=== PATIENT | male | born 1950 | race Caucasian/White ===

== ENCOUNTER 2021-04-05 07:36 | Emergency (ER) | payer OTHER ==
[~2021-04-05] VITALS: Ht 154.9 cm; Wt 74.4 kg
[2021-04-05] MEDS ORDERED: DIAZEPAM 5 MG TABLET (VALIUM) PO ONE (07:45)
[2021-04-05] MEDS ORDERED: NACL 0.9% 1,000 ML IV ONE ×2 (07:45→09:30)
[2021-04-05 07:53] VITALS: BP_SYST 196
[2021-04-05 08:19] LABS: BASOPHILS % (AUTO) 0.3 % (0.0-2.0); EOSINOPHILS # (AUTO) 0.1 K/uL (0.0-0.4); HEMOGLOBIN 13.5 g/dL (14.0-18.0); LYMPHOCYTES # (AUTO) 1.6 K/uL (1.0-5.5); LYMPHOCYTES % (AUTO) 34.7 % (20.5-51.5); MEAN CORPUSCULAR HEMOGLOBIN 30 pg (27-31); MEAN CORPUSCULAR HGB CONC 34 % (32-36); MEAN CORPUSCULAR VOLUME 88 fL (79.0-98.0); MONOCYTES # (AUTO) 0.4 K/uL (0.0-1.0); MONOCYTES % (AUTO) 8.9 % (1.7-9.3); NEUTROPHILS # (AUTO) 2.5 K/uL (1.8-7.7); NEUTROPHILS % (AUTO) 54.1 % (40.0-70.0); PLATELET COUNT (AUTO) 181 K/uL (130-430); RED BLOOD CELL COUNT(AUTO) 4.56 MIL/uL (4.2-6.2); RED CELL DISTRIBUTION WIDTH 13.8 % (9.0-15.0); WHITE BLOOD COUNT (AUTO) 4.7 K/uL (4.8-10.8)
[2021-04-05 08:23] LABS: ANION GAP 11 (5-15); CALCIUM 9.1 mg/dL (8.4-11.0); CHLORIDE 102 mmol/L (98-107); CREATININE 1.38 mg/dL (0.55-1.30); GLUCOSE 255 mg/dL (70-99); POTASSIUM 4.3 mmol/L (3.5-5.1); SODIUM SERUM 135 mmol/L (136-145); UREA NITROGEN, BLOOD 36 mg/dL (8-21)
[2021-04-05 08:28] LABS: PHOSPHORUS 3.7 mg/dL (2.7-4.5)
[2021-04-05 08:56] LABS: BILIRUBIN,URINE NEGATIVE (NEGATIVE); CLARITY/URINE CLEAR (CLEAR); COLOR,URINE YELLOW (YELLOW); GLUCOSE,URINE 3+ (NEGATIVE); KETONES,URINE NEGATIVE (NEGATIVE); LEUKOCYTE ESTERASE ,URINE NEGATIVE (NEGATIVE); NITRITE, URINE NEGATIVE (NEGATIVE); PH,URINE 5.5 (5.0-8.0); PROTEIN URINE 1+ (NEGATIVE); UROBILINOGEN,URINE 0.2 (0.2-1.0)
[2021-04-05 09:06] LABS: BLOOD, URINE TRACE (NEGATIVE)
[2021-04-05 09:16] LABS: RBC,URINE 0-3 /HPF (0-3); WBC,URINE 0-3 /HPF (0-3)
[2021-04-05 09:17] LABS: BACTERIA,URINE FEW /HPF (None Seen); MUCUS,URINE 1+ /LPF (None Seen)
[2021-04-05] MEDS ORDERED: ACETAMINOPHEN 500 MG TABLET PO ONE (09:30)
[2021-04-05] MEDS ORDERED: IBUPROFEN 600 MG TABLET PO ONE (09:30)
[2021-04-05] MEDS ORDERED: CYCL-10 PO (12:01)
[2021-04-05] MEDS ORDERED: ACET-2634 PO (12:01)
[2021-04-05 12:16] VITALS: BP_SYST 142
== END 2021-04-05 12:16 | disposition home or self-care (01) ==
LOC: SED 07:36
DX: M62.838 Other muscle spasm (principal); M79.662 Pain in left lower leg; E11.9 Type 2 diabetes mellitus without complications
CPT/HCPCS: 36415; 80048; 81000; 82550; 82962; 83735; 84100; 85025; 96360; 96361; 99285; J7030

== ENCOUNTER 2024-02-03 08:48 | Emergency (ER) | payer OTHER ==
[~2024-02-03] VITALS: Ht 157.5 cm; Wt 74.4 kg
[~2024-02-03 08:48] MED LIST: ACET-2634 PO; CYCL10TA24 PO
[2024-02-03 08:55] VITALS: BP_SYST 123; PULSE 95; RESP 16; TEMP 97.1; O2SAT 97
[2024-02-03 09:35] LABS: BASOPHILS # (AUTO) 0.1 K/uL (0.0-0.2); BASOPHILS % (AUTO) 0.7 % (0.0-2.0); EOSINOPHILS # (AUTO) 0.1 K/uL (0.0-0.4); HEMATOCRIT 41.7 % (36-54); HEMOGLOBIN 14.6 g/dL (14.0-18.0); LYMPHOCYTES % (AUTO) 21.3 % (20.5-51.5); MEAN CORPUSCULAR HEMOGLOBIN 30 pg (27-31); MEAN CORPUSCULAR HGB CONC 35 % (32-36); MEAN CORPUSCULAR VOLUME 85 fL (79.0-98.0); MONOCYTES # (AUTO) 0.7 K/uL (0.0-1.0); MONOCYTES % (AUTO) 7.5 % (1.7-9.3); NEUTROPHILS # (AUTO) 6.4 K/uL (1.8-7.7); NEUTROPHILS % (AUTO) 69.5 % (40.0-70.0); PLATELET COUNT (AUTO) 228 K/uL (130-430); RED BLOOD CELL COUNT(AUTO) 4.89 MIL/uL (4.2-6.2); RED CELL DISTRIBUTION WIDTH 14.5 % (9.0-15.0); WHITE BLOOD COUNT (AUTO) 9.2 K/uL (4.8-10.8)
[2024-02-03 09:46] LABS: ANION GAP 13 (5-15); CALCIUM 9.1 mg/dL (8.4-11.0); CARBON DIOXIDE 24 mmol/L (23-29); CHLORIDE 100 mmol/L (98-107); CREATININE 1.92 mg/dL (0.55-1.30); GLUCOSE 279 mg/dL (74-106); POTASSIUM 4.4 mmol/L (3.5-5.1); SODIUM SERUM 137 mmol/L (136-145); UREA NITROGEN, BLOOD 37 mg/dL (8-21)
[2024-02-03 09:51] LABS: ALANINE AMINOTRANSFERASE 17 U/L (12-78); ALBUMIN 4.1 g/dL (3.4-4.8); ASPARTATE AMINOTRANSFERASE 5 U/L (10-37); BILIRUBIN,DIRECT 0.2 mg/dL (0.0-0.3); TOTAL PROTEIN, SERUM 8.2 g/dL (6.4-8.3)
[2024-02-03] MEDS: NACL 0.9% 1,000 ML IV ONE (09:52)
[2024-02-03 10:27] LABS: BILIRUBIN,URINE NEGATIVE (NEGATIVE); CLARITY/URINE CLEAR (CLEAR); COLOR,URINE YELLOW (YELLOW); GLUCOSE,URINE 1+ (NEGATIVE); KETONES,URINE TRACE (NEGATIVE); LEUKOCYTE ESTERASE ,URINE NEGATIVE (NEGATIVE); NITRITE, URINE NEGATIVE (NEGATIVE); PH,URINE 5.5 (5.0-8.0); PROTEIN URINE 2+ (NEGATIVE); UROBILINOGEN,URINE 0.2 (0.2-1.0)
[2024-02-03 10:44] LABS: BLOOD, URINE TRACE (NEGATIVE)
[2024-02-03 11:23] LABS: BACTERIA,URINE RARE /HPF (None Seen); HYALINE CASTS, URINE 0-1 /LPF (None Seen); WBC,URINE 0-3 /HPF (0-3)
[2024-02-03] MEDS ORDERED: METR-154 PO (12:47)
[2024-02-03] MEDS ORDERED: AUG875 PO (12:47)
[2024-02-03] MEDS ORDERED: PIPERACILLIN/TAZOBACTAM 3.375 GM/VIAL (ZOSYN) IV ONE (12:57)
[2024-02-03] MEDS: PIPERACILLIN/TAZO 3.375 GM in NS 50 ML IV ONE (13:14)
[2024-02-03 13:44] VITALS: BP_SYST 106; PULSE 75; RESP 19; TEMP 97.4; O2SAT 98
== END 2024-02-03 13:40 | disposition home or self-care (01) ==
LOC: SED 08:48
DX: K57.92 Diverticulitis of intestine, part unspecified, without perforation or abscess without bleeding (principal); R10.30 Lower abdominal pain, unspecified; Z79.899 Other long term (current) drug therapy
CPT/HCPCS: 99285; 74176; 96365; 96361; 80076; 80048; 81001; 85025; 87040; 36415; 81000; 81015; J2543; J7030